=== PATIENT | female | born 1990 | race Two or more races ===

== ENCOUNTER 2023-02-09 18:04 | Emergency (ER) | payer OTHER ==
[~2023-02-09] VITALS: Ht 154.9 cm; Wt 66.2 kg
--- NOTE | 2023-02-09 18:10 | NUR ---
BIB FRIEND C/O SWELLING OF HER BUTTOCK AFTER RECIEVING 4 DAYS OF PROGESTERONE SHOTS
[2023-02-09] MEDS ORDERED: HYDROCODONE/APAP 5/325MG TABLET PO ONE (18:30)
[2023-02-09] MEDS ORDERED: HYDROCODONE/APAP 5/325MG TABLET ONE (18:46)
[2023-02-09] MEDS ORDERED: IBUP-1953 PO (19:04)
--- NOTE | 2023-02-09 19:15 | NUR ---
Patient discharged to home in stable condition. Written and verbal after care instructions given. Patient verbalizes understanding of instruction.
[2023-02-09 19:16] VITALS: BP 121/68
== END 2023-02-09 19:17 | disposition home or self-care (01) ==
LOC: ER 18:07
DX: M25.552 Pain in left hip (principal); M25.551 Pain in right hip
CPT/HCPCS: 76882